=== PATIENT | female | born 1985 | race Caucasian/White ===

== ENCOUNTER 2019-11-05 10:33 | Emergency (ER) | payer SELFPAY ==
[~2019-11-05] VITALS: Ht 167.6 cm; Wt 81.6 kg
[2019-11-05 10:38] VITALS: BP 89/64
--- NOTE | 2019-11-05 10:42 | NUR ---
PT TAKEN TO ER BED 6, ASSISTED BY RELATIVES
[2019-11-05] MEDS ORDERED: DICYCLOMINE HCL LIQUID 20 MG, ALUMINUM HYD/MAG/SIMETHICONE 30 ML, LIDOCAINE VISCOUS 2% ... PO ONE ×3 (10:45)
[2019-11-05] MEDS ORDERED: ONDANSETRON 4 MG ODT PO ONE (10:45)
[2019-11-05] MEDS ORDERED: LIDOCAINE VISCOUS 2% 20 ML UDC ONE (10:47)
[2019-11-05] MEDS ORDERED: ALUMINUM HYD/MAG/SIMETHICONE 30 ML UDC ONE (10:48)
[2019-11-05] MEDS ORDERED: DICYCLOMINE HCL LIQUID 10 MG/5 ML UDC ONE (10:48)
--- NOTE | 2019-11-05 11:03 | NUR ---
C/O EPIGASTRIC PAIN STARTING THIS MORNING 10/, NON RADIATING AND SHARP. PT ALSO REPORTS NAUSEA AND VOMITING. DENIES HX OF CARDIAC PROBLEMS. HR EVEN AND REGULAR. BP 87/53 AT THIS TIME, PER FAMILY HER BP IS NORMALLY LOW, BUT THEY DO NOT KNOW THE NORMAL READINGS. PT GRASPING UPPER ABDOMEN AND MOANING AT THIS TIME. ABDOMEN SOFT FLAT AND TENDER TO PALPATION ON EPIGASTRIC AREA. SKIN IS COOL/DRY. O2 SAT RA 98%. 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
--- NOTE | 2019-11-05 12:04 | NUR ---
ERMD BEDSIDE EVALUATING PT
[2019-11-05 13:12] VITALS: BP 98/68
--- NOTE | 2019-11-05 13:12 | NUR ---
Patient discharged with v/s stable. Written and verbal after care instructions given and explained. Patient verbalized understanding. Ambulatory with steady gait. All questions addressed prior to discharge. Advised to follow up with PMD. RX OF MOTRIN AND ZOFRAN GIVEN, SIDE EFFECTS EXPLAINED.
== END 2019-11-05 13:12 | disposition home or self-care (01) ==
LOC: MED 10:33
DX: R10.13 Epigastric pain (principal); R11.2 Nausea with vomiting, unspecified
CPT/HCPCS: 99283; Q0162

== ENCOUNTER 2021-07-20 20:48 | Emergency (ER) | payer MEDICAID ==
[~2021-07-20] VITALS: Ht 157.5 cm; Wt 93.9 kg
[2021-07-20 21:16] VITALS: BP 114/77
--- NOTE | 2021-07-20 21:44 | NUR ---
PT TAKEN TO BED 11
[2021-07-20 22:12] LABS: BASOPHILS % (AUTO) 0.2 % (0.0-2.0); EOSINOPHILS # (AUTO) 0.2 K/uL (0-0.4); EOSINOPHILS % (AUTO) 1.7 % (0.0-4.0); HEMATOCRIT 33.5 % (36-48); HEMOGLOBIN 11.1 g/dL (12.0-16.0); LYMPHOCYTES % (AUTO) 11.3 % (20.5-51.1); MEAN CORPUSCULAR HEMOGLOBIN 28 pg (27-31); MEAN CORPUSCULAR HGB CONC 33 g/dL (33-37); MEAN CORPUSCULAR VOLUME 83.5 fL (80-94); MONOCYTES # (AUTO) 0.5 K/uL (0.8-1.0); MONOCYTES % (AUTO) 5.7 % (1.7-9.3); NEUTROPHILS # (AUTO) 7.5 K/uL (1.8-7.7); NEUTROPHILS % (AUTO) 81.1 % (42.2-75.2); PLATELET COUNT (AUTO) 288 K/uL (140-450); RED BLOOD CELL COUNT(AUTO) 4.02 MIL/uL (4.20-5.40); RED CELL DISTRIBUTION WIDTH 14.7 % (11.6-13.7); WHITE BLOOD COUNT (AUTO) 9.2 K/uL (4.8-10.8)
[2021-07-20 22:32] LABS: ALBUMIN 3.5 g/dL (3.4-5.0); ANION GAP 12.5 (8-16); CARBON DIOXIDE 27.8 mmol/L (21-32); CREATININE 0.8 mg/dL (0.6-1.3); POTASSIUM 3.3 mmol/L (3.5-5.1); TOTAL BILIRUBIN 0.3 mg/dL (0.0-1.0)
[2021-07-20] MEDS ORDERED: OMEP40EC24 PO (23:25)
[2021-07-20] MEDS ORDERED: IBUP-2213 PO (23:25)
[2021-07-20 23:30] VITALS: BP 114/77
--- NOTE | 2021-07-20 23:30 | NUR ---
Patient discharged with v/s stable. Written and verbal after care instructions given and explained. Patient alert, oriented and verbalized understanding of instructions. Ambulatory with steady gait. All questions addressed prior to discharge. ID band removed. Patient advised to follow up with PMD. Rx of IBUPROFEN AND OMEPRAZOLE given. Patient educated on indication of medication including possible reaction and side effects. Opportunity to ask questions provided and answered.
== END 2021-07-20 23:30 | disposition home or self-care (01) ==
LOC: MED 20:48
DX: R07.89 Other chest pain (principal); R11.2 Nausea with vomiting, unspecified; Z98.890 Other specified postprocedural states
CPT/HCPCS: 36415; 80053; 83690; 83880; 84484; 85025; 85610; 85730; 93005; 99284

== ENCOUNTER 2021-07-24 23:44 | Emergency (ER) | payer MEDICAID ==
[~2021-07-24] VITALS: Ht 152.4 cm; Wt 93.7 kg
[~2021-07-24 23:44] MED LIST: IBUP-2213 PO; OMEP40EC24 PO
[2021-07-24 23:46] VITALS: BP 138/72
--- NOTE | 2021-07-25 00:01 | NUR ---
PATIENT ALERT ORIENT COMPLAINING OF PAIN VITALS SIGNS IN NORMAL LIMITS //DiCaprio RN
--- NOTE | 2021-07-25 00:02 | NUR ---
PT TAKEN TO BED 03. AMBULATORY W STEADY GAIT.
[2021-07-25] MEDS ORDERED: DICYCLOMINE HCL LIQUID 20 MG, ALUMINUM HYD/MAG/SIMETHICONE 30 ML, LIDOCAINE VISCOUS 2% ... PO ONE ×3 (00:50)
[2021-07-25] MEDS ORDERED: ALUMINUM HYD/MAG/SIMETHICONE 30 ML UDC ONE (00:53)
[2021-07-25] MEDS ORDERED: DICYCLOMINE HCL LIQUID 10 MG/5 ML UDC ONE (00:54)
[2021-07-25 01:00] LABS: BASOPHILS % (AUTO) 0.7 % (0.0-2.0); EOSINOPHILS # (AUTO) 0.1 K/uL (0-0.4); EOSINOPHILS % (AUTO) 2.3 % (0.0-4.0); HEMATOCRIT 34.4 % (36-48); HEMOGLOBIN 11.4 g/dL (12.0-16.0); LYMPHOCYTES # (AUTO) 1.4 K/uL (2.5-16.5); LYMPHOCYTES % (AUTO) 21.6 % (20.5-51.1); MEAN CORPUSCULAR HEMOGLOBIN 28 pg (27-31); MEAN CORPUSCULAR HGB CONC 33 g/dL (33-37); MEAN CORPUSCULAR VOLUME 83.3 fL (80-94); MONOCYTES # (AUTO) 0.5 K/uL (0.8-1.0); MONOCYTES % (AUTO) 7.5 % (1.7-9.3); NEUTROPHILS # (AUTO) 4.3 K/uL (1.8-7.7); NEUTROPHILS % (AUTO) 67.9 % (42.2-75.2); PLATELET COUNT (AUTO) 318 K/uL (140-450); RED BLOOD CELL COUNT(AUTO) 4.13 MIL/uL (4.20-5.40); RED CELL DISTRIBUTION WIDTH 14.4 % (11.6-13.7); WHITE BLOOD COUNT (AUTO) 6.3 K/uL (4.8-10.8)
[2021-07-25] MEDS ORDERED: FAMOTIDINE 20 MG TAB PO ONE (01:00)
[2021-07-25 01:15] LABS: ALBUMIN 3.7 g/dL (3.4-5.0); ANION GAP 13.4 (8-16); CARBON DIOXIDE 28.2 mmol/L (21-32); CREATININE 0.7 mg/dL (0.6-1.3); POTASSIUM 3.6 mmol/L (3.5-5.1); TOTAL BILIRUBIN 0.6 mg/dL (0.0-1.0)
[2021-07-25] MEDS ORDERED: PROCHLORPERAZINE 10 MG/2 ML VIAL IVP ONE (01:35)
[2021-07-25 01:45] LABS: APPEARANCE,URINE CLEAR (CLEAR); BILIRUBIN,URINE NEGATIVE (NEGATIVE); BLOOD, URINE NEGATIVE (NEGATIVE); COLOR,URINE YELLOW (YELLOW); LEUKOCYTE ESTERASE ,URINE NEGATIVE (NEGATIVE); NITRITE, URINE NEGATIVE (NEGATIVE); UGLUCOSE NEGATIVE (NEGATIVE)
[2021-07-25] MEDS ORDERED: KETOROLAC 30 MG/ML VIAL IVP ONE (01:45)
--- NOTE | 2021-07-25 02:00 | NUR ---
PATIENT NOT COMPLAINING OF PAIN AT THIS TIME SLEEPING AT THIS TIME //William LOVE
[2021-07-25] MEDS ORDERED: MORPHINE SULFATE 4 MG/ML SYR IVP ONE ×2 (02:15→05:35)
--- NOTE | 2021-07-25 02:25 | NUR ---
ULTRASOUND AT BEDSIDE
[2021-07-25] MEDS ORDERED: SUCRALFATE 1 GM TAB PO STA (05:32)
[2021-07-25] MEDS ORDERED: PANTOPRAZOLE 40 MG INJ VIAL IVP ONE (05:35)
--- NOTE | 2021-07-25 05:37 | NUR ---
PATIENT ALERT ORIENTED COMPLAINING OF PAIN WE ARE GOING TO GIVE PAIN MEDICATION NOW//William LOVE
--- NOTE | 2021-07-25 06:05 | NUR ---
PATIENT WENT TO CT SCANE //Yogiaprdwight RN
--- NOTE | 2021-07-25 06:43 | NUR ---
PATIENT SLEEPING AT THIS TIME NOT COMPLAINING OF PAIN VITALS SIGNS IN NORMAL LIMITS //DiCaprio RN
--- NOTE | 2021-07-25 07:00 | NUR ---
PT MOVED TO BED #5
--- NOTE | 2021-07-25 07:17 | NUR ---
GOT REPORT FROM STEPHANIE LOVE.
--- NOTE | 2021-07-25 07:53 | NUR ---
PATIENT IN BED, RESTING COMFORTABLY.
[2021-07-25] MEDS ORDERED: MAGN296S PO (08:50)
[2021-07-25 09:09] VITALS: BP 117/72
--- NOTE | 2021-07-25 09:10 | NUR ---
Patient discharged with v/s stable. Written and verbal after care instructions given CONSTIPATION AND FATTY LIVER and explained. Patient alert, oriented and verbalized understanding of instructions. Ambulatory with steady gait. All questions addressed prior to discharge. ID band removed. Patient advised to follow up with PMD. Rx of MAGNESIUM CITRATE given. Patient educated on indication of medication including possible reaction and side effects. Opportunity to ask questions provided and answered.
== END 2021-07-25 09:09 | disposition home or self-care (01) ==
LOC: MED 23:44
DX: R10.10 Upper abdominal pain, unspecified (principal); R11.2 Nausea with vomiting, unspecified; R94.5 Abnormal results of liver function studies; Z79.899 Other long term (current) drug therapy
CPT/HCPCS: 36415; 74176; 76705; 80053; 81003; 81025; 83690; 84484; 85025; 93005; 96374; 96375; 96376; 99284; C9113; J0780; J1885; J2270; Q0092

== ENCOUNTER 2021-07-25 22:01 | Emergency (ER) | payer MEDICAID ==
[~2021-07-25] VITALS: Ht 157.5 cm; Wt 93.4 kg
[~2021-07-25 22:01] MED LIST changes: +MAGN296S PO
[2021-07-25 22:20] VITALS: BP 107/71
--- NOTE | 2021-07-25 22:31 | NUR ---
patient to the [facility] ambulatory
[2021-07-25] MEDS ORDERED: MAGNESIUM CITRATE 300 ML BTL PO ONE (23:25)
[2021-07-25] MEDS ORDERED: ACETAMINOPHEN EXTRA STRENGTH 500 MG TAB PO ONE (23:25)
[2021-07-25] MEDS ORDERED: ONDANSETRON 4 MG ODT PO ONE (23:25)
[2021-07-26 00:03] VITALS: BP 111/68
--- NOTE | 2021-07-26 00:03 | NUR ---
Patient discharged with v/s stable. Written and verbal after care instructions given and explained. Patient verbalized understanding. Ambulatory with steady gait. ID band removed. All questions addressed prior to discharge. Advised to follow up with PMD.
== END 2021-07-26 00:03 | disposition home or self-care (01) ==
LOC: MED 22:01
DX: K59.00 Constipation, unspecified (principal); R11.10 Vomiting, unspecified; Z90.49 Acquired absence of other specified parts of digestive tract; Z98.890 Other specified postprocedural states
CPT/HCPCS: 99284; Q0162

== ENCOUNTER 2022-12-27 11:56 | Emergency (ER) | payer SELFPAY ==
[~2022-12-27] VITALS: Ht 160 cm; Wt 94.3 kg
[~2022-12-27 11:56] MED LIST changes: -MAGN296S PO; +MAGN296S68 PO
[2022-12-27 12:00] VITALS: BP 130/72
--- NOTE | 2022-12-27 12:32 | NUR ---
AMB. TO BED 11 W NO DIFFICULTIES
--- NOTE | 2022-12-27 13:01 | NUR ---
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
[2022-12-27] MEDS ORDERED: KETOROLAC 60 MG/2 ML VIAL IM ONE (13:25)
[2022-12-27] MEDS ORDERED: ONDANSETRON 4 MG ODT PO ONE (13:25)
[2022-12-27] MEDS ORDERED: ONDA8TAB87 PO (13:44)
[2022-12-27] MEDS ORDERED: IBUP-2213 PO (13:44)
[2022-12-27] MEDS ORDERED: MEDR10TA PO (13:44)
--- NOTE | 2022-12-27 14:10 | NUR ---
Patient discharged with v/s stable. Written and verbal after care instructions given and explained. Patient alert, oriented and verbalized understanding of instructions. Ambulatory with steady gait. All questions addressed prior to discharge. ID band removed. Patient advised to follow up with PMD. Rx of IBUPROFEN, PROVERA, ZOFRAN given. Patient educated on indication of medication including possible reaction and side effects. Opportunity to ask questions provided and answered.
== END 2022-12-27 14:09 | disposition home or self-care (01) ==
LOC: MED 11:56
DX: N93.8 Other specified abnormal uterine and vaginal bleeding (principal); Z90.49 Acquired absence of other specified parts of digestive tract; Z98.890 Other specified postprocedural states; Z79.899 Other long term (current) drug therapy; Z79.1 Long term (current) use of non-steroidal anti-inflammatories (NSAID)
CPT/HCPCS: 81025; 96372; 99283; J1885; Q0162

== ENCOUNTER 2023-12-09 14:06 | Inpatient (IN) | payer MEDICAID, OTHER ==
[~2023-12-09] VITALS: Ht 157.5 cm; Wt 97.1 kg
[~2023-12-09 14:06] MED LIST changes: +MEDR10TA PO; +ONDA8TAB87 PO
[2023-12-09 14:34] VITALS: BP 115/71; PULSE 118; RESP 20; TEMP 99.6; O2SAT 99
[2023-12-09 15:58] LABS: BASOPHILS % (AUTO) 0.1 % (0.0-2.0); EOSINOPHILS % (AUTO) 0.2 % (0.0-4.0); HEMATOCRIT 29.4 % (36-48); HEMOGLOBIN 9.6 g/dL (12.0-16.0); LYMPHOCYTES # (AUTO) 1.9 K/uL (2.5-16.5); LYMPHOCYTES % (AUTO) 11.4 % (20.5-51.1); MEAN CORPUSCULAR HEMOGLOBIN 24 pg (27-31); MEAN CORPUSCULAR HGB CONC 33 g/dL (33-37); MEAN CORPUSCULAR VOLUME 73.9 fL (80-94); MONOCYTES # (AUTO) 1.2 K/uL (0.8-1.0); MONOCYTES % (AUTO) 7.2 % (1.7-9.3); NEUTROPHILS # (AUTO) 13.7 K/uL (1.8-7.7); NEUTROPHILS % (AUTO) 81.1 % (42.2-75.2); PLATELET COUNT (AUTO) 449 K/uL (140-450); RED BLOOD CELL COUNT(AUTO) 3.98 MIL/uL (4.20-5.40); RED CELL DISTRIBUTION WIDTH 15.4 % (11.6-13.7)
[2023-12-09 16:20] LABS: ANION GAP 13.5 (8-16); CALCIUM 8.5 mg/dL (8.5-10.1); CARBON DIOXIDE 27.5 mmol/L (21-32); CREATININE 0.7 mg/dL (0.6-1.3)
[2023-12-09 16:38] LABS: ALBUMIN 2.9 g/dL (3.4-5.0); BILIRUBIN,DIRECT 0.2 mg/dL (0.0-0.3); TOTAL BILIRUBIN 0.6 mg/dL (0.0-1.0); TOTAL PROTEIN, SERUM 7.9 g/dL (6.4-8.2)
[2023-12-09 16:41] LABS: INR 0.96 (0.8-1.2); PARTIAL THROMBOPLASTIN TIME 28.1 secs (22-35.6); PROTHROMBIN TIME 10.1 secs (10.8-13.4)
[2023-12-09] MEDS ORDERED: ONDANSETRON 4 MG/2 ML VIAL ONE (16:44)
[2023-12-09] MEDS ORDERED: MORPHINE SULFATE 4 MG/ML SYR ONE (16:44)
[2023-12-09] MEDS: ONDANSETRON 4 MG/2 ML VIAL IVP ONE (16:46)
[2023-12-09] MEDS: MORPHINE SULFATE 4 MG/ML SYR IVP ONE (16:49)
[2023-12-09 17:24] LABS: APPEARANCE,URINE CLEAR (CLEAR); BILIRUBIN,URINE 2+ (NEGATIVE); BLOOD, URINE 3+ (NEGATIVE); COLOR,URINE YELLOW (YELLOW); LEUKOCYTE ESTERASE ,URINE TRACE (NEGATIVE); NITRITE, URINE NEGATIVE (NEGATIVE); PROTEIN,URINE 2+ (NEGATIVE); UGLUCOSE NEGATIVE (NEGATIVE)
[2023-12-09] MEDS: NACL 0.9% 1,000 ML IV ONE (17:32)
[2023-12-09] MEDS ORDERED: PIPERACILLIN/TAZOBACTAM 4.5 GM VIAL IV ONE (17:47)
[2023-12-09] MEDS: ACETAMINOPHEN 650 MG SUPP RC ONE (17:50)
[2023-12-09] MEDS: PIPERACILLIN/TAZOBACTAM 3.375 GM in DEXTROSE 5% 50 ML IV ONE (17:52)
[2023-12-09 17:53] LABS: BACTERIA,URINE FEW /HPF (None Seen); ICTOTEST NEGATIVE (NEGATIVE); MUCUS,URINE None Seen /LPF (None Seen); SQUAMOUS EPITHELIAL CELL,UR 0-3 (FEW) /LPF (0-3 (FEW)); TRICHOMONAS,URINE None Seen /HPF (None Seen); WBC,URINE 0-5 /HPF (0-5); WHITE BLOOD CELL CASTS,URINE None Seen /LPF (None Seen); YEAST,URINE None Seen /HPF (None Seen)
[2023-12-09] MEDS: NACL 0.9% 500 ML IV ONE (17:54)
[2023-12-09] MEDS ORDERED: MAG SULF 2000 MG/WATER PREMIX 50 ML IV PRN (21:30)
[2023-12-09] MEDS ORDERED: LORazepam 1 MG TAB PO PRN (21:30)
[2023-12-09] MEDS ORDERED: ONDANSETRON 4 MG/2 ML VIAL IVP PRN (21:30)
[2023-12-09] MEDS ORDERED: ZOLPIDEM 5 MG TAB PO PRN (21:30)
[2023-12-09] MEDS: NACL 0.9% 1,000 ML IV SCH (21:30)
[2023-12-09] MEDS ORDERED: MORPHINE SULFATE 4 MG/ML SYR IVP PRN (21:30)
[2023-12-09] MEDS ORDERED: cefTRIAXone 1,000 MG VIAL ONE (21:51)
[2023-12-09] MEDS ORDERED: OXYC-304 PO (22:13)
[2023-12-09] MEDS ORDERED: DOCU-299 PO (22:13)
[2023-12-09 22:25] VITALS: PULSE 97; RESP 18; O2SAT 99
[2023-12-10] VITALS (7 sets, daily range): BP systolic 101–124; BP diastolic 53–76; PULSE 84–100; RESP 18–20; TEMP 97.9–99.9; O2SAT 95–99
[2023-12-10] MEDS: KCL 20 MEQ IN 100 mL PREMIX 200 ML IV PRN (00:22)
[2023-12-10] MEDS: metroNIDAZOLE 500 MG/NS PREMIX 100 ML IV SCH (04:43)
[2023-12-10 07:02] LABS: BASOPHILS % (AUTO) 0.3 % (0.0-2.0); EOSINOPHILS # (AUTO) 0.1 K/uL (0-0.4); EOSINOPHILS % (AUTO) 0.9 % (0.0-4.0); HEMATOCRIT 24.3 % (36-48); HEMOGLOBIN 8.1 g/dL (12.0-16.0); LYMPHOCYTES # (AUTO) 1.2 K/uL (2.5-16.5); LYMPHOCYTES % (AUTO) 9.2 % (20.5-51.1); MEAN CORPUSCULAR HEMOGLOBIN 24 pg (27-31); MEAN CORPUSCULAR HGB CONC 33 g/dL (33-37); MEAN CORPUSCULAR VOLUME 73.6 fL (80-94); MONOCYTES # (AUTO) 0.8 K/uL (0.8-1.0); MONOCYTES % (AUTO) 6.8 % (1.7-9.3); NEUTROPHILS # (AUTO) 10.3 K/uL (1.8-7.7); NEUTROPHILS % (AUTO) 82.8 % (42.2-75.2); PLATELET COUNT (AUTO) 360 K/uL (140-450); RED CELL DISTRIBUTION WIDTH 15.1 % (11.6-13.7); WHITE BLOOD COUNT (AUTO) 12.5 K/uL (4.8-10.8)
[2023-12-10 07:26] LABS: ANION GAP 13.8 (8-16); CALCIUM 7.6 mg/dL (8.5-10.1); CARBON DIOXIDE 25.2 mmol/L (21-32); CREATININE 0.7 mg/dL (0.6-1.3)
[2023-12-10] MEDS: MEDS-TO-BEDS MC SCH (08:55)
[2023-12-10] MEDS ORDERED: POTASSIUM CHL 40 MEQ/ D5-1/2NS 250 ML IV SCH (18:30)
[2023-12-10] MEDS: POTASSIUM CHLORIDE 10 MEQ TABER PO PRN (18:38)
[2023-12-11] VITALS (7 sets, daily range): BP systolic 101–111; BP diastolic 58–68; PULSE 87–99; RESP 16–18; TEMP 97.4–100.1; O2SAT 94–100
[2023-12-11 06:42] LABS: BASOPHILS % (AUTO) 0.2 % (0.0-2.0); EOSINOPHILS # (AUTO) 0.1 K/uL (0-0.4); EOSINOPHILS % (AUTO) 1.3 % (0.0-4.0); HEMATOCRIT 25.9 % (36-48); HEMOGLOBIN 8.5 g/dL (12.0-16.0); LYMPHOCYTES # (AUTO) 1.1 K/uL (2.5-16.5); LYMPHOCYTES % (AUTO) 10.2 % (20.5-51.1); MEAN CORPUSCULAR HEMOGLOBIN 24 pg (27-31); MEAN CORPUSCULAR HGB CONC 33 g/dL (33-37); MEAN CORPUSCULAR VOLUME 74.6 fL (80-94); MONOCYTES # (AUTO) 0.5 K/uL (0.8-1.0); MONOCYTES % (AUTO) 5.1 % (1.7-9.3); NEUTROPHILS # (AUTO) 8.8 K/uL (1.8-7.7); NEUTROPHILS % (AUTO) 83.2 % (42.2-75.2); PLATELET COUNT (AUTO) 396 K/uL (140-450); RED BLOOD CELL COUNT(AUTO) 3.47 MIL/uL (4.20-5.40); RED CELL DISTRIBUTION WIDTH 15.6 % (11.6-13.7); WHITE BLOOD COUNT (AUTO) 10.5 K/uL (4.8-10.8)
[2023-12-11 07:17] LABS: ANION GAP 14.8 (8-16); CALCIUM 8.1 mg/dL (8.5-10.1); CARBON DIOXIDE 23.2 mmol/L (21-32); CREATININE 0.7 mg/dL (0.6-1.3)
[2023-12-11] MEDS: ACETAMINOPHEN 325 MG TAB PO PRN (18:58)
[2023-12-12 07:02] LABS: BASOPHILS % (AUTO) 0.3 % (0.0-2.0); EOSINOPHILS # (AUTO) 0.1 K/uL (0-0.4); EOSINOPHILS % (AUTO) 1.3 % (0.0-4.0); HEMOGLOBIN 8.5 g/dL (12.0-16.0); LYMPHOCYTES # (AUTO) 1.2 K/uL (2.5-16.5); LYMPHOCYTES % (AUTO) 10.4 % (20.5-51.1); MEAN CORPUSCULAR HEMOGLOBIN 24 pg (27-31); MEAN CORPUSCULAR HGB CONC 33 g/dL (33-37); MEAN CORPUSCULAR VOLUME 73.6 fL (80-94); MONOCYTES # (AUTO) 0.5 K/uL (0.8-1.0); MONOCYTES % (AUTO) 4.8 % (1.7-9.3); NEUTROPHILS # (AUTO) 9.2 K/uL (1.8-7.7); NEUTROPHILS % (AUTO) 83.2 % (42.2-75.2); PLATELET COUNT (AUTO) 393 K/uL (140-450); RED BLOOD CELL COUNT(AUTO) 3.53 MIL/uL (4.20-5.40)
[2023-12-12 07:23] LABS: ANION GAP 15.2 (8-16); CALCIUM 8.1 mg/dL (8.5-10.1); CARBON DIOXIDE 23.6 mmol/L (21-32); CREATININE 0.6 mg/dL (0.6-1.3); POTASSIUM 3.8 mmol/L (3.5-5.1)
[2023-12-12 08:00] VITALS: BP 115/60; PULSE 78; RESP 18; TEMP 98; O2SAT 98
[2023-12-12] MEDS: fentaNYL citrate 0.05 MG/ML VIAL ONE (08:16)
[2023-12-12] MEDS: MIDAZOLAM 2 MG/2 ML VIAL ONE (08:17)
[2023-12-12] MEDS: LIDOCAINE 2% 1000 MG/50 ML VIAL INJ ONE (08:17)
[2023-12-12 10:40] VITALS: BP 110/63; PULSE 72; RESP 18; TEMP 98.6; O2SAT 98
[2023-12-12 12:00] VITALS: BP 111/60; PULSE 81; RESP 18; TEMP 98.5; O2SAT 98
[2023-12-12 16:00] VITALS: BP 110/62; PULSE 77; RESP 18; TEMP 98.4; O2SAT 97
[2023-12-12 20:00] VITALS: BP 105/60; PULSE 78; PULSE 94; RESP 18; TEMP 98.5; O2SAT 94
[2023-12-13] MEDS: HYDROcodone/APAP 5/325 MG 1 TAB TAB PO PRN (01:10)
[2023-12-13 04:00] VITALS: BP 90/59; PULSE 78; RESP 18; TEMP 97.5; O2SAT 94
[2023-12-13 07:13] LABS: BASOPHILS % (AUTO) 0.2 % (0.0-2.0); EOSINOPHILS # (AUTO) 0.1 K/uL (0-0.4); EOSINOPHILS % (AUTO) 1.3 % (0.0-4.0); HEMOGLOBIN 8.2 g/dL (12.0-16.0); LYMPHOCYTES # (AUTO) 1.7 K/uL (2.5-16.5); LYMPHOCYTES % (AUTO) 17.7 % (20.5-51.1); MEAN CORPUSCULAR HEMOGLOBIN 24 pg (27-31); MEAN CORPUSCULAR HGB CONC 33 g/dL (33-37); MEAN CORPUSCULAR VOLUME 74.4 fL (80-94); MONOCYTES # (AUTO) 0.7 K/uL (0.8-1.0); MONOCYTES % (AUTO) 6.8 % (1.7-9.3); NEUTROPHILS # (AUTO) 7.3 K/uL (1.8-7.7); PLATELET COUNT (AUTO) 414 K/uL (140-450); RED BLOOD CELL COUNT(AUTO) 3.36 MIL/uL (4.20-5.40); RED CELL DISTRIBUTION WIDTH 15.4 % (11.6-13.7); WHITE BLOOD COUNT (AUTO) 9.9 K/uL (4.8-10.8)
[2023-12-13 07:40] LABS: ANION GAP 12.5 (8-16); CALCIUM 8.3 mg/dL (8.5-10.1); CARBON DIOXIDE 25.9 mmol/L (21-32); CREATININE 0.6 mg/dL (0.6-1.3); POTASSIUM 3.4 mmol/L (3.5-5.1)
[2023-12-13 08:00] VITALS: BP 106/65; PULSE 72; RESP 18; TEMP 98; TEMP 98.5; O2SAT 95; O2SAT 98
[2023-12-13 12:00] VITALS: BP 106/65; PULSE 72; RESP 18; TEMP 98; O2SAT 98
[2023-12-13 16:00] VITALS: BP 106/61; PULSE 87; RESP 18; TEMP 98.9; O2SAT 99
[2023-12-13 20:00] VITALS: BP 107/70; PULSE 72; PULSE 95; RESP 18; TEMP 98.5; TEMP 98.6; O2SAT 100; O2SAT 98
[2023-12-13 20:30] VITALS: BP 125/73; PULSE 100; RESP 19; TEMP 98.6; O2SAT 100
[2023-12-14 04:00] VITALS: BP 101/60; PULSE 87; RESP 18; TEMP 96.7; O2SAT 96
[2023-12-14 06:35] LABS: BASOPHILS % (AUTO) 0.2 % (0.0-2.0); EOSINOPHILS # (AUTO) 0.2 K/uL (0-0.4); EOSINOPHILS % (AUTO) 1.6 % (0.0-4.0); HEMATOCRIT 27.1 % (36-48); LYMPHOCYTES # (AUTO) 1.6 K/uL (2.5-16.5); LYMPHOCYTES % (AUTO) 17.3 % (20.5-51.1); MEAN CORPUSCULAR HEMOGLOBIN 25 pg (27-31); MEAN CORPUSCULAR HGB CONC 33 g/dL (33-37); MEAN CORPUSCULAR VOLUME 73.9 fL (80-94); MONOCYTES # (AUTO) 0.7 K/uL (0.8-1.0); MONOCYTES % (AUTO) 7.8 % (1.7-9.3); NEUTROPHILS # (AUTO) 6.9 K/uL (1.8-7.7); NEUTROPHILS % (AUTO) 73.1 % (42.2-75.2); PLATELET COUNT (AUTO) 453 K/uL (140-450); RED BLOOD CELL COUNT(AUTO) 3.66 MIL/uL (4.20-5.40); RED CELL DISTRIBUTION WIDTH 15.6 % (11.6-13.7); WHITE BLOOD COUNT (AUTO) 9.5 K/uL (4.8-10.8)
[2023-12-14 07:09] LABS: ANION GAP 15.1 (8-16); CALCIUM 8.3 mg/dL (8.5-10.1); CARBON DIOXIDE 23.5 mmol/L (21-32); CREATININE 0.6 mg/dL (0.6-1.3); POTASSIUM 3.6 mmol/L (3.5-5.1)
[2023-12-14 08:00] VITALS: BP 98/63; PULSE 72; PULSE 83; RESP 18; RESP 20; TEMP 96.7; TEMP 98.5; O2SAT 97; O2SAT 98
[2023-12-14] MEDS ORDERED: ACET-9525 PO (14:22)
[2023-12-14] MEDS ORDERED: AMOX1TER12 PO (14:22)
[2023-12-14] MEDS ORDERED: ACET-10509 PO (14:22)
[2023-12-14 16:54] VITALS: BP 98/63; PULSE 83; RESP 20; TEMP 96.7
== END 2023-12-14 17:35 | disposition home or self-care (01) | DRG 721 ==
LOC: MED 14:06 → MTU 21:31
PROVIDERS: ADMIT Student in an Organized Health Care Education/Training Program; ATTEND Student in an Organized Health Care Education/Training Program
PROC: 0W9J30Z Drainage of Pelvic Cavity with Drainage Device, Percutaneous Approach (ICD-10-PCS; principal; 2023-12-12)
DX: T81.43XA Infection following a procedure, organ and space surgical site, initial encounter (principal); E44.1 Mild protein-calorie malnutrition; A41.9 Sepsis, unspecified organism; R64 Cachexia; E66.9 Obesity, unspecified; N73.9 Female pelvic inflammatory disease, unspecified; Z79.899 Other long term (current) drug therapy; Z90.710 Acquired absence of both cervix and uterus; Z90.49 Acquired absence of other specified parts of digestive tract; Z98.891 History of uterine scar from previous surgery; Z68.39 Body mass index [BMI] 39.0-39.9, adult
CPT/HCPCS: 36415; 75989; 80048; 80076; 81001; 83605; 85025; 85610; 85730; 87040; 87070; 87075; 87081; 87086; 87186; 87205; 96365; 96375; 99285; C1729; J0696; J2001; J2250; J2270; J2405; J2543; J3010; J3480; J3490; J7060; Q9967